=== PATIENT | male | born 1950 | race Caucasian/White ===

== ENCOUNTER 2017-10-23 10:33 | Inpatient (IN) ==
[2017-10-23] MEDS ORDERED: ASPIRIN 325 MG TABLET PO STA (11:03)
[2017-10-23] MEDS ORDERED: MORPHINE 4 MG/1 ML VIAL IV STA (11:03)
[2017-10-23] MEDS ORDERED: NITROGLYCERIN SL 0.4 MG TABLET SL PRN (11:03)
[2017-10-23 11:21] LABS: Basophils # 0.1 10*3/uL (0.0-0.2); Basophils % 0.6 % (0.0-0.8); Eosinophils # 0.5 10*3/uL (0.0-0.87); Eosinophils % 4.8 % (0.00-10.9); Hematocrit 44.7 VOL% (42.0-52.0); Hemoglobin 14.9 GM/DL (14.0-18.0); Immature Granulocytes % 0.9 %; Lymphocytes # 2.5 10*3/uL (1.4-4.0); Lymphocytes % 21.9 % (21.2-54.2); Mean Corpuscular HGB Conc 33.3 GM/DL (32-36); Mean Corpuscular Hemoglobin 31 PG (27-34); Mean Platelet Volume 9.8 FL (9.6-12.0); Monocytes % 8.4 % (1.7-12.7); Neutrophils # 7.2 10*3/uL (1.4-7.4); Neutrophils % 63.4 % (38.7-73.9); Platelet Count 266 T/CUMM (130-400); Red Blood Count 4.86 MC/CUMM (3.8-5.5); Red Cell Distribution Width 13.2 % (9.3-17.3); White Blood Count 11.4 T/CUMM (4-12)
[2017-10-23 11:30] LABS: PT Patient Result 10.5 SECS; Partial Thromboplastin Time 27.3 SECS (0-40)
[2017-10-23 11:46] LABS: Albumin 3.7 G/DL (3.4-5.0); Bilirubin,Total 0.5 MG/DL (0.2-1.0); Calcium 9.1 MG/DL (8.5-10.1); Osmolality,Calculated 277.7 MOS/KG (273-304); Potassium 4.5 MMOL/L (3.5-5.1); Total Protein 6.8 G/DL (6.4-8.3)
[2017-10-23] MEDS ORDERED: ALUM/MAG/SIMETH/LIDO VISC 1:1 30 ML BOTTLE PO PRN (13:37)
[2017-10-23] MEDS ORDERED: MAGNESIUM SULF RIDER 2 GM in PREMIX 1 EACH IV PRN (13:37)
[2017-10-23] MEDS ORDERED: ACETAMINOPHEN 325 MG TABLET PO PRN (13:37)
[2017-10-23] MEDS ORDERED: ONDANSETRON 4 MG/2 ML VIAL IV PRN (13:37)
[2017-10-23] MEDS ORDERED: MAGNESIUM SULF RIDER 4 GM in PREMIX 1 EACH IV PRN (13:37)
[2017-10-23 14:00] LABS: Risk Ratio 3.96
[2017-10-23] MEDS ORDERED: FUROSEMIDE 20 MG/2 ML VIAL IV STA (14:03)
[2017-10-23] MEDS ORDERED: guaiFENesin/DM ER 600-30 MG TABLET PO PRN (14:13)
[2017-10-23] MEDS ORDERED: NICOTINE 21 MG/24 HR PATCH TRANSDERM PRN (14:13)
[2017-10-23] MEDS ORDERED: MORPHINE 4 MG/1 ML VIAL IV PRN (14:13)
[2017-10-23] MEDS: ALBUTEROL/IPRATROPIUM 3 ML NEB RESP TX SCH (19:19)
[2017-10-23] MEDS ORDERED: CARVEDILOL 6.25 MG TABLET PO SCH (21:00)
[2017-10-23] MEDS ORDERED: ROSUVASTATIN 10 MG TABLET PO SCH (21:00)
[2017-10-23] MEDS: ROSUVASTATIN 20 MG TABLET PO SCH (21:19)
[2017-10-23] MEDS: METOPROLOL TARTRATE 50 MG TABLET PO SCH (21:20)
[2017-10-23] MEDS: ESCITALOPRAM 10 MG TABLET PO SCH (21:20)
[2017-10-23] MEDS: ENOXAPARIN 40 MG/0.4 ML SYRINGE SUBCUT SCH (21:20)
[2017-10-23] MEDS: traZODone 50 MG TABLET PO PRN (21:20)
[2017-10-23] MEDS: DOCUSATE SODIUM 100 MG CAPSULE PO SCH (21:20)
[2017-10-24] MEDS: ALBUTEROL/IPRATROPIUM 3 ML NEB RESP TX SCH ×4 (01:18→19:05)
[2017-10-24 07:09] LABS: Basophils # 0.1 10*3/uL (0.0-0.2); Basophils % 0.5 % (0.0-0.8); Eosinophils # 0.6 10*3/uL (0.0-0.87); Eosinophils % 5.3 % (0.00-10.9); Hemoglobin 14.5 GM/DL (14.0-18.0); Immature Granulocytes % 0.8 %; Immature Granulocytes Absolute 0.08 #; Lymphocytes # 2.8 10*3/uL (1.4-4.0); Lymphocytes % 27.3 % (21.2-54.2); Mean Corpuscular Hemoglobin 31 PG (27-34); Mean Corpuscular Volume 92.8 FL (87-102); Mean Platelet Volume 9.8 FL (9.6-12.0); Monocytes # 0.8 10*3/uL (0.11-0.8); Monocytes % 7.8 % (1.7-12.7); Neutrophils # 6.1 10*3/uL (1.4-7.4); Neutrophils % 58.3 % (38.7-73.9); Platelet Count 236 T/CUMM (130-400); Red Blood Count 4.74 MC/CUMM (3.8-5.5); Red Cell Distribution Width 13.2 % (9.3-17.3); White Blood Count 10.4 T/CUMM (4-12)
[2017-10-24 07:34] LABS: Alanine Aminotransferase 20 U/L (16-61); Albumin 3.3 G/DL (3.4-5.0); Alkaline Phosphatase 73 U/L (45-117); Aspartate Amino Transferase 7 U/L (0-37); Bilirubin,Total < 0.39 MG/DL (0.2-1.0); Blood Urea Nitrogen 21 MG/DL (7-18); Calcium 8.3 MG/DL (8.5-10.1); Glucose 166 MG/DL (74-106); Osmolality,Calculated 281.7 MOS/KG (273-304); Potassium 3.9 MMOL/L (3.5-5.1); Sodium 138 MMOL/L (136-145); Total Protein 6.7 G/DL (6.4-8.3)
[2017-10-24] MEDS ORDERED: ISOSORBIDE MONONITRATE 30 MG TABLET PO SCH (09:00)
[2017-10-24] MEDS: PANTOPRAZOLE 40 MG TABLET PO SCH (10:02)
[2017-10-24] MEDS: ASPIRIN EC 325 MG TABLET PO SCH (10:02)
[2017-10-24] MEDS: METOPROLOL TARTRATE 50 MG TABLET PO SCH ×2 (10:02→21:43)
[2017-10-24] MEDS: DOCUSATE SODIUM 100 MG CAPSULE PO SCH ×2 (10:02→21:43)
[2017-10-24] MEDS: ROSUVASTATIN 20 MG TABLET PO SCH (21:43)
[2017-10-24] MEDS: ENOXAPARIN 40 MG/0.4 ML SYRINGE SUBCUT SCH (21:43)
[2017-10-24] MEDS: ESCITALOPRAM 10 MG TABLET PO SCH (21:43)
[2017-10-25] MEDS: ALBUTEROL/IPRATROPIUM 3 ML NEB RESP TX SCH ×4 (00:34→19:00)
[2017-10-25 05:02] LABS: Basophils # 0.1 10*3/uL (0.0-0.2); Basophils % 0.7 % (0.0-0.8); Eosinophils # 0.5 10*3/uL (0.0-0.87); Eosinophils % 4.7 % (0.00-10.9); Hemoglobin 14.3 GM/DL (14.0-18.0); Immature Granulocytes % 0.8 %; Immature Granulocytes Absolute 0.08 #; Lymphocytes # 3.1 10*3/uL (1.4-4.0); Lymphocytes % 31.9 % (21.2-54.2); Mean Corpuscular HGB Conc 31.8 GM/DL (32-36); Mean Corpuscular Hemoglobin 30 PG (27-34); Mean Corpuscular Volume 94.7 FL (87-102); Mean Platelet Volume 9.9 FL (9.6-12.0); Monocytes # 0.8 10*3/uL (0.11-0.8); Neutrophils # 5.2 10*3/uL (1.4-7.4); Neutrophils % 53.9 % (38.7-73.9); Platelet Count 239 T/CUMM (130-400); Red Blood Count 4.75 MC/CUMM (3.8-5.5); Red Cell Distribution Width 13.2 % (9.3-17.3); White Blood Count 9.7 T/CUMM (4-12)
[2017-10-25 05:25] LABS: Calcium 8.5 MG/DL (8.5-10.1); Osmolality,Calculated 283.4 MOS/KG (273-304)
[2017-10-25] MEDS: SODIUM CHLORIDE 0.9% 1,000 ML IV SCH ×3 (06:10→22:01)
[2017-10-25] MEDS ORDERED: MAGNESIUM SULF RIDER 2 GM in PREMIX 1 EACH IV PRN (08:16)
[2017-10-25] MEDS ORDERED: diphenhydrAMINE CAP 25 MG CAPSULE PO ONE (08:16)
[2017-10-25] MEDS ORDERED: DIAZEPAM 5 MG TABLET PO ONE (08:16)
[2017-10-25] MEDS ORDERED: methylPREDNISolone SOD SUC 125 MG/2 ML VIAL IV ONE (08:16)
[2017-10-25] MEDS ORDERED: POTASSIUM CHLORIDE RIDER 10 MEQ in PREMIX 1 EACH IV PRN (08:16)
[2017-10-25] MEDS: PANTOPRAZOLE 40 MG TABLET PO SCH (13:08)
[2017-10-25] MEDS: ASPIRIN EC 325 MG TABLET PO SCH (13:10)
[2017-10-25] MEDS: METOPROLOL TARTRATE 50 MG TABLET PO SCH ×2 (13:10→20:51)
[2017-10-25] MEDS: DOCUSATE SODIUM 100 MG CAPSULE PO SCH ×2 (13:22→20:51)
[2017-10-25] MEDS ORDERED: MIDAZOLAM 2 MG/2 ML VIAL ONE (14:37)
[2017-10-25] MEDS ORDERED: fentaNYL 100 MCG/2 ML VIAL ONE (14:38)
[2017-10-25] MEDS ORDERED: VERAPAMIL 5 MG/2 ML VIAL ONE (14:40)
[2017-10-25] MEDS ORDERED: NITROGLYCERIN DRIP 50 MG/250 ML BOTTLE IV ONE (14:40)
[2017-10-25] MEDS ORDERED: ENOXAPARIN 30 MG/0.3 ML SYRINGE ONE (15:00)
[2017-10-25] MEDS: ESCITALOPRAM 10 MG TABLET PO SCH (20:51)
[2017-10-25] MEDS: ROSUVASTATIN 20 MG TABLET PO SCH (20:51)
[2017-10-25] MEDS: traZODone 50 MG TABLET PO PRN (20:53)
[2017-10-26] MEDS: ALBUTEROL/IPRATROPIUM 3 ML NEB RESP TX SCH ×2 (00:20→08:15)
[2017-10-26] MEDS: SODIUM CHLORIDE 0.9% 1,000 ML IV SCH (06:17)
[2017-10-26] MEDS: DOCUSATE SODIUM 100 MG CAPSULE PO SCH (08:21)
[2017-10-26] MEDS: PANTOPRAZOLE 40 MG TABLET PO SCH (08:21)
[2017-10-26] MEDS: METOPROLOL TARTRATE 50 MG TABLET PO SCH (08:21)
[2017-10-26] MEDS: ASPIRIN EC 325 MG TABLET PO SCH (08:21)
[2017-10-26] MEDS ORDERED: ROSUVASTATIN 10 MG TABLET PO SCH (10:31)
[2017-10-26] MEDS ORDERED: ASPIRIN EC 81 MG TABLET PO SCH (10:31)
[2017-10-26] MEDS ORDERED: METOPROLOL TARTRATE 25 MG TABLET PO SCH (10:32)
[2017-10-26 12:21] VITALS: BP 114/66
== END 2017-10-26 13:55 | disposition home or self-care (01) | DRG 192 ==
LOC: N.ED 10:33 → SUATTDRO 13:36 → N.EDINP 13:36 → N.TELEN 14:42
PROVIDERS: ADMIT Internal Medicine; ATTEND Internal Medicine
PROC: CLCCHCL (ICD-10-PCS; 2017-10-25 14:45)